=== PATIENT | female | born 2000 | race Two or more races ===

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

== ENCOUNTER → 2018-04-22 | Outpatient (CLI) | payer MEDICAID ==
--- NOTE | 2018-04-23 10:08 | EEG PRO FEE REPORT ---
EEG INTERPRETATION PATIENT NAME: LOGAN ANAND ROOM#: ORDER#: [id number] DATE OF STUDY: 04/22/2018 : 2000 REFERRING MD: LETITIA CISSE M.D. MEDICATIONS: Zarontin History This is a 18 year old right handed woman with a history of seizures since age [age]. This EEG was requested for seizures. EEG Interpretation This EEG was recorded in the awake, drowsy, and sleep states. The awake EEG is characterized by a well organized background with a briefly noted but well developed and reactive posterior dominant rhythm of 12 Hz. The remainder of the background was a mix of alpha and beta. There was mu present. Drowsiness is characterized by slowing of the background rhythms. Vertex waves and sleep spindles were seen in the midline head regions. Photic stimulation resulted in a good driving response. Hyperventilation resulted in generalized slowing of the background. There was one generalized burst of sharply contoured theta occurring less than 1.5 minutes following hyperventilation cessation. This could be consistent with a fragmentary generalized burst or with normal post hyperventilation slowing. There were no definite epileptiform abnormalities. The EKG showed a regular rhythm. EEG Impression This EEG is within normal limits however there was excessive beta activity that can be seen with certain medications {e.g. benzodiazepines}. There were no definite epileptiform abnormalities. Clinical correlation is however required. INTERPRETING PHYSICIAN: PRAKASH BEEBE M.D. /: MTEFFT TT: 0946 ID: [id number] /: [id number] TD: 1741 JOB: [id number] cc:Rolando ELLIS M.D. > MTDD
== END ==
LOC: NEURO 12:37
PROVIDERS: ATTEND Pediatrics
DX: G40.309 Generalized idiopathic epilepsy and epileptic syndromes, not intractable, without status epilepticus (principal); F51.09 Other insomnia not due to a substance or known physiological condition; F41.9 Anxiety disorder, unspecified
CPT/HCPCS: 95819

== ENCOUNTER 2020-01-01 09:57 | Emergency (ER) | payer MEDICAID ==
[2020-01-01 10:23] VITALS: BP 119/85
[2020-01-01 10:36] LABS: ABSOLUTE EOSINOPHILS # (AUTO) 0.1 10^3/uL (0.0-0.6); ABSOLUTE LYMPHOCYTES (AUTO) 1.8 10^3/uL (0.5-4.7); ABSOLUTE MONOCYTES (AUTO) 0.3 10^3/uL (0.1-1.4); ABSOLUTE NEUT (AUTO) 5.4 10^3/uL (1.7-8.2); BASOPHILS % (AUTO) 0.2 % (0-2); EOSINOPHILS % (AUTO) 0.9 % (0-6); HEMATOCRIT 41.7 % (36.0-47.0); HEMOGLOBIN 14.1 g/dL (12.0-15.5); LYMPHOCYTES % (AUTO) 23.5 % (13-45); MEAN CORPUSCULAR HEMOGLOBIN 26.8 pg (27.0-33.4); MEAN CORPUSCULAR HGB CONC 33.7 g/dL (32.0-36.0); MEAN CORPUSCULAR VOLUME 79 fl (80-97); MONOCYTES % (AUTO) 4.5 % (3-13); PLATELET COUNT 216 10^3/uL (150-450); RED BLOOD COUNT 5.25 10^6/uL (3.72-5.28); RED CELL DISTRIBUTION WIDTH 12.9 % (11.5-14.0); SEGMENTED NEUTROPHILS % (AUTO) 70.9 % (42-78); TOTAL CELLS COUNTED % (AUTO) 100 %; WHITE BLOOD COUNT 7.6 10^3/uL (4.0-10.5)
[2020-01-01 10:42] LABS: ALBUMIN 4.6 g/dL (3.5-5.0); ALKALINE PHOSPHATASE 61 U/L (38-126); ANION GAP 15 (5-19); ASPARTATE AMINO TRANSFERASE 20 U/L (14-36); BILIRUBIN,TOTAL 0.5 mg/dL (0.2-1.3); BLOOD UREA NITROGEN 8 mg/dL (7-20); CALCIUM 9.8 mg/dL (8.4-10.2); CARBON DIOXIDE 20 mmol/L (22-30); CHLORIDE 106 mmol/L (98-107); GLUCOSE 110 mg/dL (75-110); POTASSIUM 4.7 mmol/L (3.6-5.0); TOTAL PROTEIN 7.5 g/dL (6.3-8.2)
[2020-01-01 10:54] LABS: CREATINE KINASE MB 1.27 ng/mL (<4.55)
[2020-01-01 10:55] LABS: TROPONIN I < 0.012 ng/mL
[2020-01-01] MEDS ORDERED: LORAZEPAM 1 MG TABLET PO ONE (11:04)
--- NOTE | 2020-01-01 11:09 | ER Document Report ---
ED Seizure - General Chief Complaint: Probable Seizure Stated Complaint: POSSIBLE SEIZURE Time Seen by Provider: 01/01/20 10:55 Primary Care Provider: THA PONCE MD [Primary Care Provider] - Follow up as needed Notes: CHIEF COMPLAINT: Seizure HPI: 19-year-old female with history of epilepsy who is on medication for seizures and states she has been taking her medication consistently who follows with Dr. Rios neurology presenting for evaluation of a seizure today while waiting to clock and at work. States the last thing she remembers was talking to her friends and then she was at the hospital. States her last seizure was 4 months ago. States she does not drive. Complains of headache believes she struck her head on the ground. Denies other complaints at this time ROS: See HPI - all other systems were reviewed and are otherwise negative Constitutional: no fever Eyes: no drainage, no blurred vision ENT: no runny nose, no sore throat Cardiovascular: no chest pain Resp: no SOB, no cough GI: no vomiting, no diarrhea, no abdominal pain : no dysuria Integumentary: no rash Allergy: no hives Musculoskeletal: no extremity pain or swelling Neurological: no numbness/tingling, no weakness, positive headache MEDICATIONS: I agree with the patient medications as charted by the RN. ALLERGIES: I agree with the allergies as charted by the RN. PAST MEDICAL HISTORY/PAST SURGICAL HISTORY: Reviewed and agree as charted by RN. SOCIAL HISTORY: Reviewed and agree as charted by RN. FAMILY HISTORY: No significant familial comorbid conditions directly related to patient complaint EXAM: Reviewed vital signs as charted by RN. CONSTITUTIONAL: Alert and oriented and responds appropriately to questions. Well-appearing; well-nourished HEAD: Normocephalic; atraumatic, no visible head injury EYES: PERRL; Conjunctivae clear, sclerae non-icteric ENT: normal nose; no rhinorrhea; moist mucous membranes; pharynx without lesions noted, no uvula edema or deviation, no tonsillar hypertrophy, phonation normal NECK: Supple without meningismus; non-tender; no cervical lymphadenopathy, no masses CARD: RRR; no murmurs, no clicks, no rubs, no gallops; symmetric distal pulses RESP: Normal chest excursion without splinting or tachypnea; breath sounds clear and equal bilaterally; no wheezes, no rhonchi, no rales, pulse oximetry 98% on room air not hypoxic ABD/GI: Normal bowel sounds; non-distended; soft, non-tender, no rebound, no guarding; no palpable organomegaly or masses. BACK: The back appears normal and is non-tender to palpation, there is no CVA tenderness EXT: Normal ROM in all joints; non-tender to palpation; no cyanosis, no effusions, no edema SKIN: Normal color for age and race; warm; dry; good turgor; no acute lesions noted NEURO: Moves all extremities equally; Motor and sensory function intact PSYCH: The patient's mood and manner are appropriate. Grooming and personal hyg iene are appropriate. MDM: 19-year-old female brought by EMS for evaluation of a seizure grand mal apparently. She was incontinent of urine. Complains of headache no visible head injury. Screening labs ordered by nursing did not show abnormalities. We will add test, urinalysis. Will watch patient in the emergency department, give Ativan to prevent further seizures. If lab work negative head CT negative anticipate discharge home to follow-up with her neurologist - Related Data Allergies/Adverse Reactions: levetiracetam [From [facility]] Allergy (Verified 08/27/16 19:52) Dystonia Past Medical History - Social History Smoking Status: Unknown if Ever Smoked Family History: Reviewed & Not Pertinent Neurological Medical History: Reports: Hx Seizures Renal/ Medical History: Denies: Hx Peritoneal Dialysis Physical Exam - Vital signs Vitals: Pulse Ox 100 01/01/20 09:59 Course - Re-evaluation Re-evalutation: 01/01/20 11:16 EKG sinus rhythm with a ventricular rate of 86. MD 132. QT 344, QTc 412. No other ectopy. Normal EKG. Interpreted by emergency department physicians 01/01/20 13:03 Patient is alert and oriented has had no further seizure activity here in the emergency department. Will discharge home to follow-up with her neurologist today by phone - Vital Signs Vital signs: Temp Pulse Resp BP Pulse Ox 98.6 F 23 H 119/85 100 01/01/20 10:01 01/01/20 10:01 01/01/20 10:01 01/01/20 10:01 - Laboratory Result Diagrams: 01/01/20 10:05 01/01/20 10:05 Laboratory results interpreted by me: 01/01/20 01/01/20 10:05 10:05 MCV 79 L MCH 26.8 L Carbon Dioxide 20 L Discharge - Discharge Clinical Impression: Seizure Condition: Stable Disposition: HOME, SELF-CARE Instructions: Seizure, Known Epileptic ([facility]) Additional Instructions: Continue your previous medications for seizure. Your lab work and imaging studies today did not show acute abnormalities. Follow-up with your neurologist by phone today to discuss any medication changes that might be needed Referrals: THA PONCE MD [Primary Care Provider] - Follow up as needed LETITIA CISSE MD [COMMUNITY BASED STAFF] - Follow up as needed
--- NOTE | 2020-01-01 11:30 | RADIOLOGY REPORT (SQ) ---
EXAM DESCRIPTION: CT HEAD WITHOUT IMAGES COMPLETED DATE/TIME: 01/01/2020 11:18 am REASON FOR STUDY: seizure, head trauma COMPARISON: None. TECHNIQUE: Axial images acquired through the brain without intravenous contrast. Images reviewed wi th bone, brain and subdural windows. Additional sagittal and coronal reconstructions were generated. Images stored on PACS. All CT scanners at this facility use dose modulation, iterative reconstruction, and/or weight based d osing when appropriate to reduce radiation dose to as low as reasonably achievable (ALARA). [facility]: Dose Right [facility]: CareDose [facility]: Dose Right [facility]: Teradose 4D [facility]: Elysia RADIATION DOSE: CT Rad equipment meets quality standard of care and radiation dose reduction techniq ues were employed. CTDIvol: 53.2 mGy. DLP: 1070 mGy-cm. mGy. LIMITATIONS: None. FINDINGS: VENTRICLES: Normal size and contour. CEREBRUM: No masses. No hemorrhage. No midline shift. No evidence for acute infarction. Normal gra y/white matter differentiation. No areas of low density in the white matter. CEREBELLUM: No masses. No hemorrhage. No alteration of density. No evidence for acute infarction. EXTRAAXIAL SPACES: No fluid collections. No masses. ORBITS AND GLOBE: No intra- or extraconal masses. Normal contour of globe without masses. CALVARIUM: No fracture. PARANASAL SINUSES: No fluid or mucosal thickening. SOFT TISSUES: No mass or hematoma. OTHER: No other significant finding. IMPRESSION: NORMAL BRAIN CT WITHOUT CONTRAST. EVIDENCE OF ACUTE STROKE: NO. COMMENT: Quality ID # [id number]: Final reports with documentation of one or more dose reduction techniques (e.g., Automated exposure control, adjustment of the mA and/or kV according to patient size, use of iterative reconstruction technique) TECHNICAL DOCUMENTATION: JOB ID: [id number] 2010 [employer]- All Rights Reserved Reading location - IP/workstation name: [email or web address]
[2020-01-01 12:16] LABS: APPEARANCE,URINE CLEAR; BILIRUBIN,URINE NEGATIVE (NEGATIVE); COLOR,URINE STRAW; GLUCOSE, URINE NEGATIVE (NEGATIVE); KETONES,URINE NEGATIVE (NEGATIVE); LEUKOCYTE ESTERASE,URINE NEGATIVE (NEGATIVE); NITRITE,URINE NEGATIVE (NEGATIVE); PROTEIN,URINE NEGATIVE (NEGATIVE); URINE SPECIFIC GRAVITY 1.012; UROBILINOGEN,URINE NEGATIVE mg/dL (<2.0)
== END 2020-01-01 13:33 | disposition home or self-care (01) ==
LOC: ER 09:57
DX: G40.409 Other generalized epilepsy and epileptic syndromes, not intractable, without status epilepticus (principal); Z79.899 Other long term (current) drug therapy; R51.9 Headache, unspecified; Z88.8 Allergy status to other drugs, medicaments and biological substances
CPT/HCPCS: 36415; 70450; 80053; 81001; 82553; 84484; 84703; 85025; 99285